=== PATIENT | female | born 1970 | race Caucasian/White ===

== ENCOUNTER 2016-09-15 01:37 | Emergency (ER) | payer MEDICAID ==
[2016-09-15 01:41] VITALS: BP 153/97
[2016-09-15 05:07] LABS: microscopic required? YES; urine erythrocyte TRACE (NEGATIVE)
== END 2016-09-15 05:56 | disposition home or self-care (01) ==
LOC: ED 01:37
PROVIDERS: Emergency Medicine
DX: R10.9 Unspecified abdominal pain (principal); M54.9 Dorsalgia, unspecified; Z90.49 Acquired absence of other specified parts of digestive tract
CPT/HCPCS: J1885; Q0092

== ENCOUNTER 2017-08-02 15:25 | Emergency (ER) | payer SELFPAY ==
[~2017-08-02] VITALS: Ht 167.6 cm; Wt 113.8 kg
[2017-08-02 15:41] VITALS: Ht 167.6 cm; Wt 113.8 kg
[2017-08-02 16:34] LABS: BASOPHIL % 1.1 % (0-2); PLATELET COUNT 236 x10^3mcL (130-400); RED CELL DISTRIBUTION WIDTH 13.9 % (11.5-14.5)
[2017-08-02 16:42] LABS: CARBON DIOXIDE 33.6 mmol/L (21-32); CHLORIDE SERUM 105 mmol/L (98-107); CREATININE SERUM 0.6 mg/dL (0.6-1.0); GFR1 > 60 mL/min; GLUCOSE SERUM 106 mg/dL (74-106); POTASSIUM SERUM 3.7 mmol/L (3.5-5.1); SODIUM SERUM 144 mmol/L (136-145)
[2017-08-02 16:58] LABS: ALBUMIN 3.8 g/dL (3.4-5.0); ALKALINE PHOSPHATASE 95 U/L (46-116); ALT/SGPT 25 U/L (14-59); AST/SGOT 17 U/L (15-37); BILIRUBIN TOTAL 0.39 mg/dL (0.20-1.00); LIPASE 149 IU/L (73-393); TOTAL PROTEIN, SERUM 7.5 g/dL (6.4-8.2)
[2017-08-02 18:01] VITALS: BP 135/94
== END 2017-08-02 18:01 | disposition home or self-care (01) ==
LOC: ED 15:25
PROVIDERS: Emergency Medicine
DX: K29.70 Gastritis, unspecified, without bleeding (principal); K92.0 Hematemesis
CPT/HCPCS: 36415

== ENCOUNTER 2018-07-26 18:23 | Emergency (ER) | payer SELFPAY ==
[~2018-07-26] VITALS: Ht 170.2 cm; Wt 112.5 kg
[2018-07-26 18:36] VITALS: BP 143/89; Ht 170.2 cm; Wt 112.5 kg
== END 2018-07-26 21:39 | disposition left against medical advice (07) ==
LOC: ED 18:23
DX: M54.6 Pain in thoracic spine (principal); R10.30 Lower abdominal pain, unspecified; Z88.5 Allergy status to narcotic agent
CPT/HCPCS: J1885; Q0092

== ENCOUNTER 2019-06-18 13:04 | Inpatient (IN) | payer MEDICAID, SELFPAY ==
[~2019-06-18] VITALS: Ht 167.6 cm; Wt 108.0 kg
[2019-06-18 13:20] VITALS: Ht 167.6 cm; Wt 108.0 kg
[2019-06-18 15:10] LABS: BASOPHIL % 0.3 % (0-2); PLATELET COUNT 216 x10^3mcL (130-400); RED CELL DISTRIBUTION WIDTH 14.2 % (11.5-14.5)
[2019-06-18 15:24] LABS: CALCIUM 7.8 mg/dL (8.5-10.1); CARBON DIOXIDE 26.3 mmol/L (21-32); CHLORIDE SERUM 100 mmol/L (98-107); CREATININE SERUM 0.9 mg/dL (0.6-1.0); GFR1 > 60 mL/min; GLUCOSE SERUM 133 mg/dL (74-106); POTASSIUM SERUM 3.8 mmol/L (3.5-5.1); SODIUM SERUM 138 mmol/L (136-145)
[2019-06-18 15:30] LABS: ALKALINE PHOSPHATASE 57 U/L (46-116); ALT/SGPT 47 U/L (14-59); AST/SGOT 46 U/L (15-37); BILIRUBIN TOTAL 0.3 mg/dL (0.20-1.00); LACTIC DEHYDROGENASE (LDH) 467 U/L (100-190); TOTAL PROTEIN, SERUM 7.1 g/dL (6.4-8.2)
[2019-06-18 15:38] LABS: ALBUMIN 2.9 g/dL (3.4-5.0)
[2019-06-18 16:10] LABS: C REACTIVE PROTEIN 35.8 mg/dL (<=0.9)
[2019-06-18 16:20] LABS: MAGNESIUM 2.1 mg/dL (1.8-2.4); PHOSPHOROUS 3.2 mg/dL (2.5-4.9)
[2019-06-18 16:22] LABS: CHOLESTEROL/HDL RATIO 4.7
[2019-06-18 16:23] LABS: T3 TOTAL 1.24 ng/mL
[2019-06-18 16:29] LABS: FREE T4 1.06 ng/dL (0.76-1.46); FREE THYROXINE INDEX 2.5 ug/dL (1.4-4.5); T4(THYROXINE) 9.1 ug/dL (4.7-13.3)
[2019-06-18 20:36] LABS: microscopic required? YES; urine erythrocyte NEGATIVE (NEGATIVE)
[2019-06-18 20:46] LABS: AMPHETAMINE QUAL UR NONE DETECTED (See below)
[2019-06-18 21:47] VITALS: BP 110/58
[2019-06-18 23:13] VITALS: BP 101/48
[2019-06-19 04:21] VITALS: BP 136/78
[2019-06-19 06:19] LABS: BASOPHIL % 0.4 % (0-2); PLATELET COUNT 226 x10^3mcL (130-400); RED CELL DISTRIBUTION WIDTH 14.3 % (11.5-14.5)
[2019-06-19 06:47] LABS: CALCIUM 7.7 mg/dL (8.5-10.1); CARBON DIOXIDE 29.5 mmol/L (21-32); CHLORIDE SERUM 104 mmol/L (98-107); CREATININE SERUM 0.7 mg/dL (0.6-1.0); GFR1 > 60 mL/min; GLUCOSE SERUM 86 mg/dL (74-106); PHOSPHOROUS 2.5 mg/dL (2.5-4.9); POTASSIUM SERUM 3.9 mmol/L (3.5-5.1); SODIUM SERUM 139 mmol/L (136-145)
[2019-06-19 07:35] LABS: C REACTIVE PROTEIN 5.4 mg/dL (<=0.9)
[2019-06-19 08:00] VITALS: BP 145/79
[2019-06-19 17:00] VITALS: BP 132/62
[2019-06-19 21:00] VITALS: BP 119/76
[2019-06-19 21:49] VITALS: BP 146/87
[2019-06-20 03:51] VITALS: BP 133/78
[2019-06-20 06:58] LABS: BASOPHIL % 0.4 % (0-2); PLATELET COUNT 291 x10^3mcL (130-400)
[2019-06-20 07:16] LABS: RED CELL DISTRIBUTION WIDTH 14.6 % (11.5-14.5)
[2019-06-20 07:24] LABS: CALCIUM 8.1 mg/dL (8.5-10.1); CARBON DIOXIDE 30.3 mmol/L (21-32); CHLORIDE SERUM 103 mmol/L (98-107); CREATININE SERUM 0.7 mg/dL (0.6-1.0); GFR1 > 60 mL/min; GLUCOSE SERUM 84 mg/dL (74-106); MAGNESIUM 2.2 mg/dL (1.8-2.4); PHOSPHOROUS 3.1 mg/dL (2.5-4.9); POTASSIUM SERUM 3.8 mmol/L (3.5-5.1); SODIUM SERUM 141 mmol/L (136-145)
[2019-06-20 07:30] VITALS: BP 130/90
[2019-06-20 13:20] LABS: PLATELET COUNT 308 x10^3mcL (130-400); RED CELL DISTRIBUTION WIDTH 14.2 % (11.5-14.5)
[2019-06-20 13:44] LABS: BAND NEUTROPHIL 0 % (0-10); BASOPHIL 0 % (0-2); MONOCYTE 18 % (0-7); SEGMENTED NEUTROPHILS 77 % (37-75)
[2019-06-20 13:46] LABS: PLATELET MORPHOLOGY PLATELETS DECREASED; rbc morphology (normal/abnorm) ABNORMAL (NORMAL)
[2019-06-20 16:40] VITALS: BP 120/70
[2019-06-20 22:35] VITALS: BP 142/70
[2019-06-21 05:52] VITALS: BP 132/82
[2019-06-21 06:38] LABS: BASOPHIL % 0.4 % (0-2); PLATELET COUNT 337 x10^3mcL (130-400); RED CELL DISTRIBUTION WIDTH 14.1 % (11.5-14.5)
[2019-06-21 07:05] LABS: CALCIUM 8.5 mg/dL (8.5-10.1); CREATININE SERUM 0.6 mg/dL (0.6-1.0); GFR1 > 60 mL/min; MAGNESIUM 2.4 mg/dL (1.8-2.4); PHOSPHOROUS 2.7 mg/dL (2.5-4.9); POTASSIUM SERUM 3.5 mmol/L (3.5-5.1)
[2019-06-21 07:26] LABS: CARBON DIOXIDE 27.9 mmol/L (21-32); CHLORIDE SERUM 101 mmol/L (98-107); GLUCOSE SERUM 110 mg/dL (74-106); SODIUM SERUM 139 mmol/L (136-145)
[2019-06-21 08:30] VITALS: BP 123/98
[2019-06-21 12:40] VITALS: BP 122/91
[2019-06-21 16:35] VITALS: BP 137/95
[2019-06-21 21:45] VITALS: BP 125/81
[2019-06-22 04:10] VITALS: BP 125/81
[2019-06-22 05:40] VITALS: BP 134/86
[2019-06-22 06:45] LABS: BASOPHIL % 0.4 % (0-2); PLATELET COUNT 393 x10^3mcL (130-400); RED CELL DISTRIBUTION WIDTH 13.7 % (11.5-14.5)
[2019-06-22 07:04] LABS: C REACTIVE PROTEIN 10.4 mg/dL (<=0.9); CALCIUM 8.9 mg/dL (8.5-10.1); CARBON DIOXIDE 27.8 mmol/L (21-32); CHLORIDE SERUM 101 mmol/L (98-107); CREATININE SERUM 0.6 mg/dL (0.6-1.0); GFR1 > 60 mL/min; GLUCOSE SERUM 95 mg/dL (74-106); MAGNESIUM 2.1 mg/dL (1.8-2.4); PHOSPHOROUS 2.6 mg/dL (2.5-4.9); POTASSIUM SERUM 3.5 mmol/L (3.5-5.1); SODIUM SERUM 141 mmol/L (136-145)
[2019-06-22 08:00] VITALS: BP 121/64
[2019-06-22 13:00] VITALS: BP 136/83
[2019-06-22 18:14] VITALS: BP 136/82
[2019-06-22 21:30] VITALS: BP 135/90
[2019-06-23 06:50] VITALS: BP 140/90
[2019-06-23 07:55] LABS: BASOPHIL % 0.4 % (0-2); PLATELET COUNT 420 x10^3mcL (130-400); RED CELL DISTRIBUTION WIDTH 13.5 % (11.5-14.5)
[2019-06-23 08:18] LABS: C REACTIVE PROTEIN 4.6 mg/dL (<=0.9); CALCIUM 8.7 mg/dL (8.5-10.1); CARBON DIOXIDE 32.9 mmol/L (21-32); CHLORIDE SERUM 104 mmol/L (98-107); CREATININE SERUM 0.6 mg/dL (0.6-1.0); GFR1 > 60 mL/min; GLUCOSE SERUM 105 mg/dL (74-106); PHOSPHOROUS 3.3 mg/dL (2.5-4.9); POTASSIUM SERUM 3.3 mmol/L (3.5-5.1); SODIUM SERUM 143 mmol/L (136-145)
[2019-06-23 13:50] VITALS: BP 131/86
[2019-06-23 17:09] VITALS: BP 123/78
[2019-06-23 21:30] VITALS: BP 130/80
[2019-06-24 06:26] VITALS: BP 125/80
[2019-06-24 07:45] VITALS: BP 123/71
[2019-06-24 12:00] VITALS: BP 125/84
[2019-06-24 18:00] VITALS: BP 123/52
[2019-06-24 20:30] VITALS: BP 134/66
[2019-06-25 06:50] VITALS: BP 127/66
[2019-06-25 07:34] LABS: C REACTIVE PROTEIN 1.7 mg/dL (<=0.9); CALCIUM 8.9 mg/dL (8.5-10.1); CARBON DIOXIDE 28.2 mmol/L (21-32); CHLORIDE SERUM 105 mmol/L (98-107); CREATININE SERUM 0.8 mg/dL (0.6-1.0); GFR1 > 60 mL/min; GLUCOSE SERUM 103 mg/dL (74-106); PHOSPHOROUS 3.4 mg/dL (2.5-4.9); POTASSIUM SERUM 3.5 mmol/L (3.5-5.1); SODIUM SERUM 143 mmol/L (136-145)
[2019-06-25 08:35] VITALS: BP 135/86
[2019-06-25 08:45] LABS: RED CELL DISTRIBUTION WIDTH 12.8 % (11.5-14.5)
[2019-06-25 08:48] LABS: BASOPHIL % 2.1 % (0-2); PLATELET COUNT 465 x10^3mcL (130-400)
[2019-06-25] MEDS ORDERED: ELIQUIS2.5 MG PO (11:45)
[2019-06-25 12:45] VITALS: BP 158/88
== END 2019-06-25 13:28 | disposition home or self-care (01) | DRG 720 ==
LOC: ED 13:04 → DU 15:26 → IC 15:26 → DU 06-19 16:52
PROVIDERS: Emergency Medicine; Student in an Organized Health Care Education/Training Program; ADMIT Internal Medicine
DX: A41.89 Other specified sepsis (principal); J96.01 Acute respiratory failure with hypoxia; U07.1 COVID-19; E44.0 Moderate protein-calorie malnutrition; R65.20 Severe sepsis without septic shock; J12.89 Other viral pneumonia; Z88.5 Allergy status to narcotic agent; Z90.49 Acquired absence of other specified parts of digestive tract; Z68.39 Body mass index [BMI] 39.0-39.9, adult
CPT/HCPCS: 36600; 83880; 84439; 85378; 87804; C1751; G0378; J0456; J0696; J1650; J2060; J3535; J3590; J7030; J7040; J7060; Q0092